=== PATIENT | female | born 1940 | race Caucasian/White ===

== ENCOUNTER 2025-01-30 06:10 | Day surgery (SDC) | payer MEDICARE, BC, SELFPAY ==
[2025-01-30 07:40] VITALS: BP 153/100
[2025-01-30 07:45] VITALS: BMI 25.9
[2025-01-30 08:07] VITALS: BMI 25.9
[2025-01-30 11:25] VITALS: BP 139/81
[2025-01-30 11:30] VITALS: BP 143/72
[2025-01-30 11:45] VITALS: BP 153/120
[2025-01-30 11:52] VITALS: BP 153/89
== END 2025-01-30 11:55 | disposition home or self-care (01) ==
LOC: SDS 06:10
PROVIDERS: ATTENDING PHYSICIAN Internal Medicine Gastroenterology; FAMILY PHYSICIAN Internal Medicine
DX: K83.8 Other specified diseases of biliary tract (principal); K57.10 Diverticulosis of small intestine without perforation or abscess without bleeding
CPT/HCPCS: 43238